=== PATIENT | male | born 1990 | race Caucasian/White ===

== ENCOUNTER 2019-08-09 18:10 | Emergency (ER) | payer OTHER ==
[~2019-08-09] VITALS: Ht 175.3 cm; Wt 59.0 kg
[2019-08-09 18:28] VITALS: BP 129/79
--- NOTE | 2019-08-09 18:34 | NUR ---
ED Nurse Note: pt came in via [facility] from home for flu-like symotoms x 3 days awaiting ermd eval.
--- NOTE | 2019-08-09 19:14 | NUR ---
HAND-OFF: Report given to Gretchen GERMAN.
[2019-08-09] MEDS: Albuterol/Ipratropium 3ml neb HHN SCH ×2 (19:26→19:48)
--- NOTE | 2019-08-09 19:33 | Emergency Room Report ---
History of Present Illness General Chief Complaint: Flu Like Symptoms Source: EMS Present Illness HPI 29-year-old male presents to the emergency department complaining of 6 out of 10 severity body aches with associated cough, nausea, vomiting, fevers and chills. Patient reports history of immune compromise he states he is HIV positive. He is not sure what his last CD4 count is. Patient states that he was not told by his doctor that he needs any additional vaccines or treatment at this point. Patient states that he did have a positive TB skin test last year. He reports history of asthma. Patient is reporting that he is having a dry persistent cough with wheezing. He states he has an albuterol inhaler at home which is not working. He has not taken any medications today. He denies recent travel or ill contacts with similar symptoms. He denies rhinorrhea, nasal congestion, ear pain, headache or sore throat. Denies CP, Palpitations, LOC, AMS, dizziness, Changes in Vision, Sensation, paresthesias, or a sudden severe headache. He is also reporting some pain and swelling in the right lower leg where he was previously injected with meth approximately 1 week ago. Patient reports history of frequent skin infections due to IV drug use. 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 Review of Systems All Other Systems: negative except mentioned in HPI Physical Exam Vital Signs Date Time Temp Pulse Resp B/P (MAP) Pulse Ox O2 Delivery O2 Flow Rate FiO2 08/09/19 18:06 97.3 121 20 129/79 (96) 98 Room Air Sp02 EP Interpretation: reviewed, normal General Appearance: alert, GCS 15, non-toxic, mild distress Head: normocephalic, atraumatic Eyes: bilateral eye normal inspection, bilateral eye PERRL ENT: hearing grossly normal, normal voice, TMs + canals normal, moist mucus membranes Neck: full range of motion Respiratory: chest non-tender, no respiratory distress, no accessory muscle use , speaking full sentences, wheezing Cardiovascular #1: regular rate, rhythm, edema - bilateral hands Cardiovascular #2: 2+ dorsalis pedis (R) - post. tibialis, 2+ dorsalis pedis (L ) - post. tibialis Gastrointestinal: normal bowel sounds, non tender, soft, non-distended, no guarding Musculoskeletal: normal range of motion, gait/station normal, non-tender Neurologic: alert, motor strength/tone normal, oriented x3, sensory intact, responsive, speech normal Psychiatric: judgement/insight normal Skin: other - Erythema, swelling to a localized area on the medial aspect of the right quiles/calf. no circumferential involvement, no posterior calf tenderness. no appreciable warmth. Pt. has multiple healing chronic ulcers on the bialteral hands and wrists with eschars noted. some mild erythema. No blisters, vessicles or sloughing of the skin. no palmar lesions Lymphatic: no adenopathy Medical Decision Making PA Attestation Dr. Grajeda is my supervising Physician whom patient management has been discussed with. Diagnostic Impression: Primary Impression: Acute viral syndrome Additional Impressions: History of immune disorder Cellulitis Qualified Codes: L03.115 - Cellulitis of right lower limb ER Course 29-year-old male presents to the emergency department complaining of 6 out of 10 severity body aches with associated cough, nausea, vomiting, fevers and chills. Patient reports history of immune compromise he states he is HIV positive. He is not sure what his last CD4 count is. Patient states that he was not told by his doctor that he needs any additional vaccines or treatment at this point. Patient states that he did have a positive TB skin test last year. He reports history of asthma. Patient is reporting that he is having a dry persistent cough with wheezing. He states he has an albuterol inhaler at home which is not working. He has not taken any medications today. He denies recent travel or ill contacts with similar symptoms. He denies rhinorrhea, nasal congestion, ear pain, headache or sore throat. Denies CP, Palpitations, LOC, AMS, dizziness, Changes in Vision, Sensation, paresthesias, or a sudden severe headache. He is also reporting some pain and swelling in the right lower leg where he was previously injected with meth approximately 1 week ago. Patient reports history of frequent skin infections due to IV drug use. Ddx considered but are not limited to URI, pneumonia, bronchitis, PE, strep pharyngitis, meningitis, influenza, OM/OE, myocarditis/endocarditis, DVT, cellulitis, asthma exacerbation just to name a few. Vital signs: Pt. is afebrile, the remaining VS are WNL H&PE are most consistent with Viral Syndrome suspicious for Influenza will treat clinically - no meningeal signs, Lungs are clear and oropharynx is not involved, no evidence of bacterial infection at this time. ORDERS: -CXR ED INTERVENTIONS: -DouNebs x 3 --PT. EDUCATION: --I discussed with this patient that I will be prescribing Tamiflu which is an antiviral. This medication is not always covered by insurance and is not always available at pharmacies. I educated patient that this medication has been shown to reduce symptoms by 1 day, and if unable to obtain there is no alternative, and to continue conservative treatment. DISCHARGE: At this time pt. is stable for d/c to home. Will provide printed patient care instructions, and any necessary prescriptions. Care plan and follow up instructions have been discussed with the patient prior to discharge. Chest X-Ray Diagnostic Results Chest X-Ray Diagnostic Results : Chest X-Ray Ordered: Yes # of Views/Limited/Complete: 1 View Indication: Shortness of Breath EP Interpretation: Yes NELA Xray: Interpretation reviewed, by supervising MD, and agrees with findings. Interpretation: no consolidation, no effusion, no pneumothorax, no acute cardiopulmonary disease Impression: No acute disease Electronically Signed by: Laureen Wu PA-C Last Vital Signs Date Time Temp Pulse Resp B/P (MAP) Pulse Ox O2 Delivery O2 Flow Rate FiO2 08/09/19 18:31 121 20 Room Air 08/09/19 18:28 97.3 129/79 98 Status: improved Disposition: HOME, SELF-CARE Condition: Stable Scripts Trimethoprim/Sulfamethoxazole 160/800* (BACTRIM DS TABLET*) 1 Each Tablet 1 TAB ORAL TWICE A DAY for 7 Days, #14 TAB Prov: Laureen Wu 08/09/19 Oseltamivir Phosphate (Tamiflu) 75 Mg Capsule 75 MG ORAL TWICE A DAY for 5 Days, #10 CAP Prov: Laureen Wu 08/09/19 Codeine/Promethazine Hcl* (PROMETHAZINE-CODEINE SYRUP*) 118 Ml Syrup 5 ML ORAL Q6H PRN for For Cough, #120 ML 0 Refills Prov: Laureen Wu 08/09/19 Albuterol Sulfate* (ALBUTEROL SULFATE HHN*) 2.5 Mg/3 Ml Vial.neb 3 ML INH Q4H PRN for Shortness of Breath, #30 EA Prov: Laureen Wu 08/09/19 Nebulizer (MINI PLUS NEBULIZER) 1 Each Each EACH MC, #1 Prov: Laureen Wu 08/09/19 Albuterol Sulfate* (ALBUTEROL SULFATE MDI*) 8.5 Gm Hfa.aer.ad 2 PUFF INH Q3H, #1 INH 0 Refills Prov: Laureen Wu 08/09/19 Referrals: NON PHYSICIAN (PCP) Additional Instructions: Take medications as directed. Follow up with a Primary Care Provider in 3-5 days, even if your symptoms have resolved. --Please review list of primary care clinics, if you do not already have a primary care provider Return sooner to ED if new symptoms occur, or current symptoms become worse. Do not drink alcohol, drive, or operate heavy machinery while taking Cough Syrup as this may cause drowsiness. - Please note that this Emergency Department Report was dictated using [employer] person technology software, occasionally this can lead to erroneous entry secondary to interpretation by the dictation equipment. Laureen Wu Aug 09, 2019 19:33
[2019-08-09] MEDS ORDERED: ALBUTEROL SULF8.5 GM INH (20:05)
[2019-08-09] MEDS ORDERED: ALBUTEROL2.5 MG/3 M INH (20:05)
[2019-08-09] MEDS ORDERED: MINI PLUS NEBU1 EACH MC (20:05)
[2019-08-09] MEDS ORDERED: TAMIFLU75 MG ORAL (20:05)
[2019-08-09] MEDS ORDERED: PROMETHAZINE-C118 M1 ORAL (20:05)
[2019-08-09] MEDS ORDERED: BACTRIM DS TAB1 EAC1 ORAL (20:05)
[2019-08-09 20:34] VITALS: BP 129/79
--- NOTE | 2019-08-09 20:34 | NUR ---
ED Nurse Note: Patient cleared for discharge by ER provider. Patient verbalized understanding of discharge instructions. Patient is A&Ox4, ambulatory with steady gait. Patient departed with all belongings to the bus.
--- NOTE | 2019-08-10 10:09 | Diagnostic Imaging Report ---
Indication: Dyspnea Comparison: None A single view chest radiograph was obtained. Findings: Cardiomediastinal appearance is within normal limits for age. The lungs are clear. Pulmonary vascularity is appropriate. The diaphragmatic contour is smooth and costophrenic angles are sharp. No pleural effusions are identified. The bones are unremarkable. Impression: No acute findings
== END 2019-08-09 20:34 | disposition home or self-care (01) ==
LOC: EDBD 18:10 → EMR 18:30
DX: B34.9 Viral infection, unspecified (principal); L03.115 Cellulitis of right lower limb; B20 Human immunodeficiency virus [HIV] disease; J45.909 Unspecified asthma, uncomplicated; F15.90 Other stimulant use, unspecified, uncomplicated
CPT/HCPCS: 71045; 94640; Z7502; 99284; J7620